=== PATIENT | female | born 1985 | race African-American/Black ===

== ENCOUNTER 2017-12-20 13:09 | Emergency (ER) | payer MEDICAID ==
[~2017-12-20] VITALS: Ht 157.5 cm; Wt 92.5 kg
[2017-12-20 13:26] VITALS: BP 115/56
--- NOTE | 2017-12-20 13:32 | NUR ---
PT AMBULATED TO ER BED 3 WITH STEADY GAIT
--- NOTE | 2017-12-20 14:00 | NUR ---
PT. CAME IN WITH C/O PAIN FOLLOWED BY A FALL AT HER DENTIST OFFICE AT 0900 TODAY. SHE HAS 10/10 PAIN ON R KNEE THAT IS A BURNING SENSATION ALL THE WAY DOWN TO HER R ANKLE. PT. HAS STAEADY GAIT AND AMBULATORY. PT. HAS A RED SPOT ON R KNEE AND R ANKLE THAT HAPPENED AFTER HER FALL. AAOX4. DENIES HITTING HER HEAD, DENIES SOB, DENIES CP, DENIES N/V/D. LS: CLEAR BILATERALLY. Crystal ROJO NOTIFIED. WILL CONTNUE TO MONITOR.
[2017-12-20] MEDS ORDERED: KETOROLAC 60 MG/2 ML VIAL IM ONE (14:45)
[2017-12-20] MEDS ORDERED: MORPHINE SULFATE 2 MG/ML SYR IM ONE (14:45)
[2017-12-20] MEDS ORDERED: MORPHINE SULFATE 4 MG/ML SYR ONE (14:53)
--- NOTE | 2017-12-20 15:02 | NUR ---
pt. taken to xray via wheelchair by animal husbandry technician
--- NOTE | 2017-12-20 16:00 | NUR ---
PT. SITTING IN BED COMFORTABLY, RR EVEN AND UNLABORED, BED AT LOWEST POSITION, WILL CONTINUE TO MONITOR.
[2017-12-20 17:06] VITALS: BP 114/78
--- NOTE | 2017-12-20 17:06 | NUR ---
Patient discharged with v/s stable. Written and verbal after care instructions given and explained. Patient alert, oriented and verbalized understanding of instructions. Ambulatory with steady gait W/ CRUTCHES . All questions addressed prior to discharge. ID band removed. Patient advised to follow up with PMD. Rx of VOLTAREN, TRAMADOL given. Patient educated on indication of medication including possible reaction and side effects. Opportunity to ask questions provided and answered.
== END 2017-12-20 17:06 | disposition home or self-care (01) ==
LOC: MED 13:09
DX: S83.91XA Sprain of unspecified site of right knee, initial encounter (principal); S93.401A Sprain of unspecified ligament of right ankle, initial encounter; Z88.8 Allergy status to other drugs, medicaments and biological substances; W01.0XXA Fall on same level from slipping, tripping and stumbling without subsequent striking against object, initial encounter; Y93.89 Activity, other specified; Y99.8 Other external cause status; Y92.89 Other specified places as the place of occurrence of the external cause
CPT/HCPCS: 29505; 73564; 73610; 81025; 96372; 99285; J1885; J2270

== ENCOUNTER 2022-06-28 07:17 | Emergency (ER) | payer MEDICAID ==
[~2022-06-28] VITALS: Ht 157.5 cm; Wt 81.3 kg
[2022-06-28 07:23] VITALS: BP 133/60
--- NOTE | 2022-06-28 07:30 | NUR ---
Leisa ramirez in [facility] - 06/28/22 at 0734 by [email or web address] PATIENT AMBULATED TO BED 7.
--- NOTE | 2022-06-28 07:34 | NUR ---
PATIENT AMBULATED TO BED 8.
--- NOTE | 2022-06-28 07:50 | NUR ---
Female Survey Superintendent accompanied female patient for BREAST Exam.
--- NOTE | 2022-06-28 07:50 | NUR ---
MD BASURTO AT BEDSIDE FOR EVALUATION
--- NOTE | 2022-06-28 07:56 | NUR ---
36YO FEMALE PT IN FOR WOUND CARE. PT STATES GETTING COSMETIC BREAST SURGERY LAST MONTH- May. STATES SUTURES FELL OFF DAYS AFTER AND HAD PUSS ON R BREAST PRESSURE. PRESENTS WITH OPEN WOUND UNDER R BREAST. NO SIGNS OF INFECTION NOTED. DENIES PAIN, N/V/D, FEVER OR CHILLS. PT AAOX4, RESPIRATIONS EVEN AND UNLABORED. HX:DENIES NKA
--- NOTE | 2022-06-28 08:08 | NUR ---
Patient discharged with v/s stable. Written and verbal after care instructions FOR WOUND CARE given and explained. Patient verbalized understanding. Ambulatory with steady gait. All questions addressed prior to discharge. Advised to follow up with PMD.
--- NOTE | 2022-06-28 09:05 | NUR ---
The patient's care was reviewed and supervised by Louis Vo RN.
== END 2022-06-28 08:10 | disposition home or self-care (01) ==
LOC: MED 07:17
DX: Z41.1 Encounter for cosmetic surgery (principal); T81.30XA Disruption of wound, unspecified, initial encounter
CPT/HCPCS: 99281

== ENCOUNTER 2023-07-23 07:57 | Emergency (ER) | payer MEDICAID ==
[~2023-07-23] VITALS: Ht 157.5 cm; Wt 73.0 kg
[2023-07-23 08:07] VITALS: BP 131/80; PULSE 97; RESP 19; TEMP 97.9; O2SAT 98
[2023-07-23] MEDS ORDERED: ALUMINUM HYD/MAG/SIMETHICONE 30 ML UDC PO ONE (08:45)
[2023-07-23] MEDS ORDERED: FAMOTIDINE 20 MG TAB PO ONE (08:45)
[2023-07-23] MEDS ORDERED: MORPHINE SULFATE 4 MG/ML SYR IVP ONE (08:45)
[2023-07-23] MEDS ORDERED: ONDANSETRON 4 MG/2 ML VIAL IVP ONE (08:45)
[2023-07-23 08:49] VITALS: BP 129/78; PULSE 95; RESP 16; TEMP 97.9; O2SAT 98
[2023-07-23 09:29] LABS: BASOPHILS % (AUTO) 0.7 % (0.0-2.0); EOSINOPHILS # (AUTO) 0.3 K/uL (0-0.4); HEMOGLOBIN 14.3 g/dL (12.0-16.0); LYMPHOCYTES # (AUTO) 2.6 K/uL (2.5-16.5); LYMPHOCYTES % (AUTO) 37.3 % (20.5-51.1); MEAN CORPUSCULAR HEMOGLOBIN 29 pg (27-31); MEAN CORPUSCULAR HGB CONC 32 g/dL (33-37); MEAN CORPUSCULAR VOLUME 91.9 fL (80-94); MONOCYTES # (AUTO) 0.4 K/uL (0.8-1.0); MONOCYTES % (AUTO) 5.2 % (1.7-9.3); NEUTROPHILS # (AUTO) 3.7 K/uL (1.8-7.7); NEUTROPHILS % (AUTO) 52.8 % (42.2-75.2); PLATELET COUNT (AUTO) 488 K/uL (140-450); RED BLOOD CELL COUNT(AUTO) 4.89 MIL/uL (4.20-5.40); RED CELL DISTRIBUTION WIDTH 14.2 % (11.6-13.7); WHITE BLOOD COUNT (AUTO) 7.1 K/uL (4.8-10.8)
[2023-07-23 09:51] LABS: ANION GAP 15.6 (8-16); CALCIUM 9.3 mg/dL (8.5-10.1); CARBON DIOXIDE 25.2 mmol/L (21-32); CREATININE 0.8 mg/dL (0.6-1.3); POTASSIUM 3.8 mmol/L (3.5-5.1)
[2023-07-23 10:32] LABS: ALBUMIN 4.4 g/dL (3.4-5.0); BILIRUBIN,DIRECT 0.1 mg/dL (0.0-0.3); TOTAL BILIRUBIN 0.5 mg/dL (0.0-1.0); TOTAL PROTEIN, SERUM 8.6 g/dL (6.4-8.2)
== END 2023-07-23 10:15 | disposition left against medical advice (07) ==
LOC: MED 07:57
DX: R10.13 Epigastric pain (principal); Z88.8 Allergy status to other drugs, medicaments and biological substances; Z79.899 Other long term (current) drug therapy
CPT/HCPCS: 36415; 80048; 80076; 83690; 84703; 85025; 96374; 96375; 99284; J2270; J2405